=== PATIENT | male | born 1975 | race Caucasian/White ===

== ENCOUNTER 2020-08-16 21:32 | Emergency (ER) | payer BC ==
[~2020-08-16] VITALS: Ht 177.8 cm; Wt 127.3 kg
[~2020-08-16 21:32] MED LIST: ALBUTEROL0.09 MG/A1 IH; ATENOLOL50 MG PO; ATIVAN 0.50.5 MG/TAB PO; HCTZ 25MG25 MG PO; INDOMETHACIN25 MG PO; VASOTEC5 MG PO
[2020-08-16 22:03] LABS: BASO # 0.1 (0.0-0.2); BASO % 0.6 % (0.0-2.0); EOS # 0.2 (0.0-0.7); EOS % 1.7 % (0-4.0); GRAN # 7.6 (1.4-6.5); GRAN % 67.6 % (42.2-75.2); HEMATOCRIT 41.2 % (42.0-52.0); HEMOGLOBIN 14.1 g/dl (13.5-18.0); LYMPH # 2.5 (1.2-3.4); LYMPH % 21.8 % (20.0-51.0); MEAN CELL VOLUME 88 fl (80.0-100.0); MEAN CORPUSCULAR HEMOGLOBIN 30 pg (27.0-31.0); MEAN CORPUSCULAR HGB CONC 34 g/dl (33.0-37.0); MEAN PLATELET VOLUME 10.3 fl (7.4-10.4); MONO # 0.8 (0.1-0.6); MONO % 7.4 % (1.7-9.3); PLATELET COUNT 235 K/mm3 (130-400); RED BLOOD COUNT 4.69 M/mm3 (4.20-5.60); REDCELL DISTRIBUTION WIDTH-CV 12.3 % (11.5-14.5)
[2020-08-16 22:10] LABS: PROTHROMBIN TIME 11.3 SECONDS (9.7-12.8)
[2020-08-16 22:13] LABS: PARTIAL THROMBOPLASTIN TIME 32.7 SECONDS (26.0-37.0)
[2020-08-16 22:14] LABS: ACETAMINOPHEN < 10 ug/mL (10-30); ALANINE AMINOTRANSFERASE 37 U/L (4-49); ALBUMIN 4.4 gm/dL (3.5-5.0); ALCOHOL(ethanol),MEDICAL < 10 mg/dL; ALKALINE PHOSPHATASE 76 U/L (50-136); ANION GAP 9 mmol/L (7-16); AST,SGOT 27 U/L (15-37); BILIRUBIN,TOTAL 0.5 mg/dL (0.0-1.0); BLOOD UREA NITROGEN 17 mg/dL (9-20); CALCIUM 9.5 mg/dL (8.4-10.2); CARBON DIOXIDE 27 mmol/L (22-30); CHLORIDE 101 mmol/L (98-107); CREATININE, serum 1.19 (0.66-1.25); GLUCOSE 89 mg/dL (74-106); POTASSIUM 4.3 mmol/L (3.4-5.0); SALICYLATE < 1.0 mg/dL; SODIUM 137 mmol/L (137-145); TOTAL PROTEIN 7.8 gm/dL (6.4-8.2)
[2020-08-16 22:41] LABS: TROPONIN-I < 0.012 ng/mL (0.000-0.035)
[2020-08-16 22:48] LABS: COLLECTION METHOD CLEAN CATCH
[2020-08-16 22:54] LABS: MUCOUS Present /lpf; PH 5 (5-8); SQUAMOUS EPITHELIAL None Seen /hpf; URINE APPEARANCE Clear; URINE BACTERIA None Seen /hpf; URINE BILIRUBIN Negative (NEGATIVE); URINE BLOOD Negative (NEGATIVE); URINE COLOR Yellow; URINE GLUCOSE Negative (NEGATIVE); URINE KETONE Negative (NEGATIVE); URINE LEUKOCYTE ESTERASE Negative (NEGATIVE); URINE NITRATE Negative (NEGATIVE); URINE PROTEIN(semi-quant) Negative (NEGATIVE); URINE RBC None Seen /hpf; URINE UROBILINOGEN Negative (NEGATIVE)
[2020-08-16 23:00] LABS: TRICYCLIC ANTIDEPRESS URINE NEGATIVE
[2020-08-16] MEDS ORDERED: VASOTEC 10M10 MG/TAB PO (23:24)
[2020-08-16] MEDS ORDERED: OTEZLA PO (23:26)
[2020-08-16] MEDS ORDERED: TENORMIN 2525 MG/TAB PO (23:26)
[2020-08-16] MEDS ORDERED: ZOLOFT 100MG100 MG PO (23:27)
[2020-08-16] MEDS ORDERED: ZYLOPRIM 100MG100 MG PO (23:29)
[2020-08-16] MEDS ORDERED: ASPIRIN 32325 MG/TAB PO (23:36)
[2020-08-16] MEDS ORDERED: PLAVIX 75MG TAB75 MG PO (23:36)
[2020-08-16] MEDS ORDERED: FIORICET 325 MG1 TA1 PO (23:36)
[2020-08-17 00:05] VITALS: BP 110/52; PULSE 57; TEMP 98.3
== END 2020-08-17 00:05 | disposition home or self-care (01) ==
LOC: COL.ER 21:32
PROVIDERS: Emergency Medicine
DX: R51.9 Headache, unspecified (principal); I10 Essential (primary) hypertension; Z79.899 Other long term (current) drug therapy
CPT/HCPCS: Q9967